=== PATIENT | male | born 2000 | race American Indian/Alaskan Native ===

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

== ENCOUNTER 2020-08-22 20:25 | Inpatient (IN) | payer OTHER ==
--- NOTE | 2020-08-22 20:56 | Event Note ---
ED Screening Note ED Screening Note: abd pain nvd for 3 days no med hx This initial assessment/diagnostic orders/clinical plan/treatment(s) is/are subject to change based on patients health status, clinical progression and re- assessment by fellow clinical providers in the ED. Further treatment and workup at subsequent clinical providers discretion. Patient/guardian urged not to elope from the ED as their condition may be serious if not clinically assessed and managed. Initial orders include: labs ua
[2020-08-22 21:18] LABS: Basophils % (Auto) 0.5 % (0.0-1.8); Eosinophils % (Auto) 0.4 % (0.0-4.3); Hematocrit 44.1 % (35.5-45.6); Lymphocytes # (Auto) 1.1 K/mm3 (1.2-5.4); Lymphocytes % (Auto) 19.5 % (13.4-35.0); Mean Corpuscular HGB Conc 34 % (32-34); Mean Corpuscular Volume 82 fl (84-94); Monocytes # (Auto) 0.7 K/mm3 (0.0-0.8); Monocytes % (Auto) 13.4 % (0.0-7.3); Platelet Count 153 K/mm3 (140-440); Red Blood Count 5.41 M/mm3 (3.65-5.03)
[2020-08-22 21:33] LABS: Alanine Aminotransferase 30 units/L (7-56); Albumin 3.7 g/dL (3.9-5); BUN/Creatinine Ratio 11; Blood Urea Nitrogen 9 mg/dL (9-20); Calcium 8.2 mg/dL (8.4-10.2); Hemolysis Index 24
[2020-08-22] MEDS ORDERED: SODIUM CHLORIDE 0.9% 1000 ML 1,000 ML IV ONE (22:13)
[2020-08-22] MEDS ORDERED: ONDANSETRON 4 MG/2 ML INJ IV ONE (22:13)
[2020-08-22] MEDS ORDERED: KETOROLAC 30 MG/1 ML INJ IV ONE (22:13)
[2020-08-22] MEDS ORDERED: dexAMETHasone 20 MG/5 ML VIAL IV ONE (22:15)
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
--- NOTE | 2020-08-22 22:41 | XRay Report ---
CHEST 2 VIEWS INDICATION / CLINICAL INFORMATION: cough, abnormal breath sounds, fever. COMPARISON: None available. FINDINGS: SUPPORT DEVICES: None. HEART / MEDIASTINUM: No significant abnormality. LUNGS / PLEURA: No significant pulmonary or pleural abnormality. No pneumothorax. ADDITIONAL FINDINGS: No significant additional findings. IMPRESSION: 1. No acute findings. Signer Name: Neymar Uribe MD Signed: 08/22/2020 10:36 PM Workstation Name: [id number]
--- NOTE | 2020-08-23 00:08 | Cat Scan Report ---
CT ABDOMEN AND PELVIS WITH CONTRAST HISTORY: Patient complains R.U.Q. and R.L.Q. abdominal pain. COMPARISON: None. TECHNIQUE: CT images of the abdomen and pelvis were obtained following administration of intravenous contrast. All CT scans at this location are performed using CT dose reduction for ALARA by means of automated exposure control. CONTRAST: 100 ml of intravenous contrast administered. FINDINGS: Lungs/bones: Increased interstitial prominence with interstitial nodularity in the lower lungs right greater than left Abdomen/pelvis: The liver, spleen, adrenal glands, pancreas and gallbladder appear normal. Bilateral kidneys appear normal. The appendix appears normal. No free fluid in the abdomen or pelvis. Urinary bladder appears normal. No bowel obstruction or focal inflammatory change. No acute bone findings are seen. IMPRESSION: 1. Appendix appears normal. 2. Interstitial prominence with nodularity in bilateral lungs. Findings could represent atypical infe ction, fungal infection, nonspecific. Follow-up after treatment to exclude underlying pulmonary nodul e. Signer Name: Neymar Uribe MD Signed: 08/23/2020 12:04 AM Workstation Name: [id number]
[2020-08-23 00:18] LABS: Bilirubin,Urine NEG (Negative); Blood,Urine NEG (Negative); Color,Urine Yellow (Yellow); Mucus,Urine FEW /HPF; Protein,Urine <15 mg/dL mg/dL (Negative)
[2020-08-23] MEDS ORDERED: IPRATROPIUM 0.02% NEBU 2.5 ML IH ONE (01:00)
[2020-08-23] MEDS ORDERED: ALBUTEROL 2.5 MG/3 ML NEBU IH ONE (01:00)
[2020-08-23] MEDS ORDERED: ACETAMINOPHEN 325 MG TAB PO PRN (01:11)
[2020-08-23] MEDS ORDERED: ONDANSETRON 4 MG/2 ML INJ IV PRN ×2 (01:11→05:44)
[2020-08-23 02:19] LABS: C-Reactive Protein 2.2 mg/dL (0.00-1.30)
[2020-08-23] MEDS ORDERED: ALBUTEROL 2.5 MG/3 ML NEBU IH PRN (05:43)
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
[2020-08-23] MEDS ORDERED: cefTRIAXone/NS 1 GM/50 ML 1 GM/50 ML BAG IV SCH (06:00)
[2020-08-23] MEDS ORDERED: AZITHROMYCIN/NS 500 MG/250 ML 500 MG/250 ML BAG IV SCH (06:00)
[2020-08-23 07:14] LABS: C-Reactive Protein 2.1 mg/dL (0.00-1.30)
[2020-08-23] MEDS ORDERED: ASCORBIC ACID 500 MG TAB PO SCH (10:00)
[2020-08-23] MEDS ORDERED: guaiFENesin ER 600 MG TAB PO SCH (10:00)
[2020-08-23] MEDS ORDERED: ZINC SULFATE 220 MG CAP PO SCH (10:00)
[2020-08-23] MEDS ORDERED: ENOXAPARIN 40 MG/0.4 ML INJ SUB-Q SCH (10:00)
[2020-08-23] MEDS ORDERED: FAMOTIDINE 20 MG/2 ML INJ IV SCH (10:00)
[2020-08-23] MEDS ORDERED: DOCUSATE SODIUM 100 MG CAP PO SCH (10:00)
[2020-08-23] MEDS ORDERED: NICOTINE 14 MG/24 HR PATCH TD SCH (10:00)
[2020-08-23] MEDS ORDERED: IBUPROFEN 600 MG TAB PO PRN (10:18)
--- NOTE | 2020-08-23 10:18 | Event Note ---
Date: 08/23/20 Patient is seen and examined. Lab and medication is reviewed. Patient is admitted this morning. Patient is doing better. Decreased shortness of breath but patient is still coughing. We will follow the Covid test. Continue current management
[2020-08-23] MEDS ORDERED: guaiFENesin/CODEINE 100-10MG ORAL LIQD 5 ML PO PRN (10:30)
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
[2020-08-23 16:55] VITALS: BP 145/89
[2020-08-23] MEDS ORDERED: QUEtiapine 200 MG TAB PO SCH (22:00)
[2020-08-24] MEDS ORDERED: cefTRIAXone/NS 2 GM/100 ML 2 GM/100 ML BAG IV SCH (06:00)
[2020-08-24] MEDS ORDERED: DIVALPROEX DR 500 MG TAB PO SCH (10:00)
== END 2020-08-23 17:00 | disposition left against medical advice (07) | DRG 689 ==
LOC: ED 20:25 → 3A 08-23 01:11
PROVIDERS: ADMIT Internal Medicine Geriatric Medicine; ATTEND Hospitalist
DX: N39.0 Urinary tract infection, site not specified (principal); J18.9 Pneumonia, unspecified organism; Z20.822 Contact with and (suspected) exposure to COVID-19; R09.02 Hypoxemia; F17.200 Nicotine dependence, unspecified, uncomplicated; Z82.49 Family history of ischemic heart disease and other diseases of the circulatory system; Z79.899 Other long term (current) drug therapy; Z71.6 Tobacco abuse counseling
CPT/HCPCS: 36415; 71046; 74177; 80053; 81001; 82728; 82947; 83520; 83615; 83690; 84145; 85025; 85379; 86140; 87040; 87086; 94640; 96361; 96374; 96375; 99406; G0378; J0456; J0696; J1100; J1650; J1885; J2405; J7030; Q9967; U0003